=== PATIENT | male | born 1945 | race Caucasian/White ===

== ENCOUNTER 2017-09-01 16:43 | Emergency (ER) | payer OTHER ==
[2017-09-01] MEDS ORDERED: FAMOTIDINE/PF 20 MG/2 ML VIAL IV ONE (17:12)
[2017-09-01] MEDS ORDERED: SODIUM CHLORIDE 0.9% 1000ML 1,000 ML IV ONE (17:12)
[2017-09-01] MEDS ORDERED: METHYLPREDNISOLONE SOD SUCC 125MG/2ML VIAL ONE (17:12)
[2017-09-01] MEDS ORDERED: DiphenhydrAMINE HCL 50 MG/ML VIAL ONE (17:12)
[2017-09-01 17:16] LABS: BASOPHILS % (AUTO) 0.2 % (0.0-5.0); HEMATOCRIT 43.4 % (42-54); LYMPHOCYTES % (AUTO) 11.8 % (21.0-51.0); MEAN CORPUSCULAR HEMOGLOBIN 28.3 pg (27.0-33.0); MEAN CORPUSCULAR HGB CONC 33.9 g/dL (32.0-36.0); MEAN CORPUSCULAR VOLUME 83.3 fL (79-99); MONOCYTES % (AUTO) 12.2 % (3.0-13.0); NEUTROPHILS % (AUTO) 75.8 % (40.0-77.0); NUCLEATED RED BLOOD CELLS 0.1 % (0.0-0.19); PLATELET COUNT (AUTO) 211 K/uL (130-400); RED BLOOD CELL COUNT(AUTO) 5.22 MIL/uL (4.50-6.20); WHITE BLOOD COUNT (AUTO) 12.9 K/uL (4.8-10.8)
[2017-09-01 17:26] LABS: CREATININE 2.1 mg/dL (0.5-1.5)
[2017-09-01 17:31] LABS: ALBUMIN 3.4 g/dL (3.5-5.0); BILIRUBIN,TOTAL 1.2 mg/dL (0.2-1.0); TOTAL PROTEIN, SERUM 7.2 g/dL (6.0-8.3)
== END 2017-09-01 18:19 | disposition home or self-care (01) ==
LOC: EDH 16:43
DX: L50.0 Allergic urticaria (principal); Z88.0 Allergy status to penicillin
CPT/HCPCS: 36415; 80053; 85025; 96361; 96374; 96375; 99284; J1200; J2930; J3490; J7030